=== PATIENT | female | born 1995 | race Caucasian/White ===

== ENCOUNTER 2024-03-22 02:00 | Day surgery (SDC) | payer OTHER, SELFPAY ==
[2024-03-07 13:27] VITALS: BMI 22.4
[2024-03-22 09:06] VITALS: BP 111/76; PULSE 71; RESP 20; TEMP 35.7; O2SAT 100; BMI 21.3
[2024-03-22 09:18] LABS: BEDSIDEPREGUCG Negative (Negative)
[2024-03-22] MEDS: LACTATED RINGERS 1,000 ML 150 ML IV CONT (09:26)
--- NOTE | 2024-03-22 09:50 | WPDANESEPPF ---
Anes - Initial Pre Proc Eval Procedure: Operation Date: 03/22/24 10:30 Proposed Procedures p Colonoscopy - Adama Rossi MD Date/Time: 03/22/24 09:50 Surgeon: Adama Rossi MD Pre Op Diagnosis: abd distension (gaseous), abd pain, abn findings Patient Data Age: 28 Gender: F Height: 1.65 m Weight: 58.2 kg Last Vital Signs Temp 96.3 F L 03/22/24 09:06 Pulse 71 03/22/24 09:06 Resp 20 03/22/24 09:06 BP 111/76 03/22/24 09:06 Pulse Ox 100 03/22/24 09:06 O2 Del Method Room Air 03/22/24 09:06 Allergies Allergy/AdvReac Type Severity Reaction Status Date / Time No Known Allergies Allergy Verified 03/22/24 09:05 Home Medications Medication Instructions Recorded Confirmed Type norgestimate 0.25 mg-ethinyl 1 tablet PO DAILY 02/21/24 03/22/24 History estradiol 35 mcg tablet (Estarylla) Laboratory Tests 03/22/24 09:16 POC Urine HCG, Qual Negative (Negative) Patient hx anesthesia problems: none Family hx anesthesia problems: none Results Review: All pre-operative results and documents have been reviewed as part of the pre-operative evaluation. [facility], [facility] Past Medical History Medical History Abdominal pain Abnormal CT scan Bloating Family history of colon cancer Skin lesion of lower extremity Social History Social History Smoking status: Never smoker Alcohol intake: current Substance use: never Substance use type: does not use Living arrangements: with family Spiritual care concerns: No Anes - Eval Final PreProcedure Day of Procedure 03/22/24 09:50 Patient weight: normal Heart: regular rate and rhythm Lungs: clear to auscultation Airway: Mallampati scale class II Neurological: alert and oriented Last oral intake: >/= 8 hours ASA classification: I Emergent: no Anesthetic plan: proceed Anesthesia type and monitoring: general GIVS and standard monitoring Results Review: All pre-operative results and documents have been reviewed as part of the pre-operative evaluation. Informed Consent: The patient's anesthetic plan and its attendant risks and benefits were discussed with the patient/family/POA. Questions were solicited and answers provided to the satisfaction of the patient/family/POA.
--- NOTE | 2024-03-22 10:14 | PM.IMHP ---
H&P: HPI History of Present Illness Date/Time: 03/22/24 10:14 Chief Complaint: The patient started having episodes of diarrhea and urgency this year. Her last episode lasted about a week and was completely controlled with a short course of corticosteroids. She has been noticing red, painful nodules on both of her shins. At 1 point, a CT scan showed a thickened colonic wall, suggestive of colitis. She is here for colonoscopy to rule out inflammatory bowel disease. Review of Systems Review of Systems: All systems reviewed & are unremarkable except as noted in HPI and below PMFSH Past Medical History Medical History Abdominal pain Abnormal CT scan Bloating Family history of colon cancer Skin lesion of lower extremity Social History Social History Smoking status: Never smoker Alcohol intake: current Substance use: never Substance use type: does not use Living arrangements: with family Spiritual care concerns: No Meds Home Medications and Allergies Home Medications Medication Instructions Recorded Confirmed Type norgestimate 0.25 mg-ethinyl 1 tablet PO DAILY 02/21/24 03/22/24 History estradiol 35 mcg tablet (Estarylla) Allergies Allergy/AdvReac Type Severity Reaction Status Date / Time No Known Allergies Allergy Verified 03/22/24 09:05 Vital Signs Vital Signs - 24 hr 03/22/24 09:06 Temperature 96.3 F L Pulse Rate 71 Respiratory Rate 20 Blood Pressure 111/76 Pulse Oximetry 100 Oxygen Delivery Room Air Exam Narrative: All within normal limits except for the presence of tender reddish nodules in left mcclure. Assessment and Plan Assessment and plan (1) Abnormal CT scan: Code(s): R93.89 - Abnormal findings on diagnostic imaging of other specified body structures Status: Acute Assessment and Plan: There is a strong suspicion for inflammatory bowel disease. Will perform colonoscopy. The patient is deemed a good candidate for the procedure. Consent signed. Will proceed.
[2024-03-22 10:54] VITALS: BP 122/68; PULSE 84; RESP 22; O2SAT 100
[2024-03-22 11:04] VITALS: BP 113/77; PULSE 72; RESP 20; O2SAT 97
[2024-03-22 11:14] VITALS: BP 112/78; PULSE 70; RESP 18; O2SAT 100
== END 2024-03-22 11:26 | disposition home or self-care (01) ==
PROVIDERS: Anesthesiology; PCP Family Medicine; Referring Provider Nurse Practitioner Family; Visit Provider Internal Medicine Gastroenterology
PROC: 0DJD8ZZ Inspection of Lower Intestinal Tract, Via Natural or Artificial Opening Endoscopic (ICD-10-PCS; CPT 45378; principal; 2024-03-22 10:30)
DX: R93.89 Abnormal findings on diagnostic imaging of other specified body structures (principal); K56.600 Partial intestinal obstruction, unspecified as to cause; Z80.0 Family history of malignant neoplasm of digestive organs
CPT/HCPCS: 45380; 88305; J2704; J7120